=== PATIENT | female | born 1990 | race Caucasian/White ===

== ENCOUNTER → 2016-09-19 | Outpatient (CLI) | payer OTHER ==
--- NOTE | ~2016-09-19 | MR17 ---
[facility] A Service [facility] RADIOLOGY TEXT RESULTS PATIENT: CHEO RUTHERFORD LOCATION: [facility] : [birth year] UNIT #: [id number] AGE: [address]: SHEY MARIE MD SEX: F ORDER DR: [id number] [place] [id number] O MR#: [id number] Acc #: [id number] NAME: CHEO RUTHERFORD : 1990 SEX: F STUDY DATE/TIME: 09/19/2016 9:42 UNIT: [facility] ROOM: STUDY DESCRIPTION: MR Brain WWo Contrast Attending Physician: Shey Marie M.D. Referring Physician: Shey Marie M.D. Ordering Physician: Shey Marie M.D. Primary Care Physician: Primary Care Physician No MRI CENTER REPORT This report is preliminary unless electronic signature is present. 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 Symptoms have gotten worse. Headaches, dizziness, fatigue and insomnia has been going on for the last year. COMPARISON None. FINDINGS Multisequence multiplanar imaging of the brain was obtained with and without contrast. 20 mL of MultiHance was administered intravenously. There is a 6 mm cerebellar tonsillar herniation noted without any obvious cervical cord syrinx in the visualized portions. Lozada-white junction is preserved. Ventricles, basal ganglia, brain stem and cerebellar hemispheres do not demonstrate any significant abnormality. No acute stroke, enhancing mass, hydrocephalus or midline shift. Thick slices through the sella with the pituitary gland, pineal region and upper cervical spine do not demonstrate any significant abnormality. Paranasal sinuses, orbits with the ocular structures and mastoids are grossly unremarkable. IMPRESSION 1. 6 mm cerebellar tonsillar herniation is noted in this patient with known Chiari malformation type I. 2. No obvious cervical cord syrinx could be identified in the visualized portions of the upper cervical cord. 3. No acute intracranial abnormality. [facility] A Service [facility] RADIOLOGY TEXT RESULTS PATIENT: CHEO RUTHERFORD [id number] [birth year] UNIT #: [id number] AGE: [address]: SHEY MARIE MD SEX: F ORDER DR: Dictated by... Nellie Santiago M.D. THIS IS AN ELECTRONICALLY VERIFIED REPORT Nellie Santiago M.D. at 09/21/2016 4:57 PM CPR/ljd TD: 09/19/2016 21:20 JOB #: [id number] MRI CENTER REPORT Page 1 of 1
== END | disposition home or self-care (01) ==
LOC: SMRI 09:14
DX: G93.5 Compression of brain (principal)
CPT/HCPCS: 70553; A9581